=== PATIENT | male | born 1970 | race Caucasian/White ===

== ENCOUNTER 2021-08-07 06:41 | Emergency (ER) | payer BC, MEDICAID ==
[~2021-08-07] VITALS: Ht 180.3 cm; Wt 77.3 kg
[2021-08-07 07:48] LABS: BASOPHILS % (AUTO) 0.2 % (0.0-2.0); EOSINOPHILS % (AUTO) 0.8 % (1.0-6.0); HEMATOCRIT 45.5 % (41-53); HEMOGLOBIN 15.4 g/dL (13.5-17.5); LYMPHOCYTES # (AUTO) 1.7 K/uL (1.0-4.8); LYMPHOCYTES % (AUTO) 20.4 % (22.0-44.0); MEAN CORPUSCULAR HGB CONC 33.9 G/dL (31.0-37.0); MEAN CORPUSCULAR VOLUME 89 fL (80-100); MONOCYTES # (AUTO) 0.6 K/uL (0.1-1.0); MONOCYTES % (AUTO) 7.1 % (2.0-9.0); NEUTROPHILS # (AUTO) 5.9 K/uL (1.8-7.7); NEUTROPHILS % (AUTO) 71.5 % (40.0-70.0); PLATELET COUNT (AUTO) 297 K/uL (150-450); RED BLOOD CELL COUNT(AUTO) 5.14 MIL/uL (4.50-5.90); RED CELL DISTRIBUTION WIDTH 13.3 % (11.5-14.5)
[2021-08-07 08:06] LABS: LACTIC ACID 0.8 mmol/L (0.4-2.0)
[2021-08-07 08:24] LABS: ANION GAP 8 mmol/L (8-16); CALCIUM, TOTAL 9.3 mg/dL (8.8-10.5); CARBON DIOXIDE 29 mmol/L (22-29); CHLORIDE 102 mmol/L (98-107); CREATININE 1.24 mg/dL (0.60-1.30); GLOMERULAR FILTR. RATE CALC > 60 mL/min (>60); GLUCOSE,RANDOM 111 mg/dL (70-110); POTASSIUM 4.5 mmol/L (3.5-5.1); SODIUM SERUM 139 mmol/L (136-145); UREA NITROGEN, BLOOD 21 mg/dL (7-18)
[2021-08-07 08:45] LABS: AMMONIA < 10 umol/L (11-32)
[2021-08-07 08:47] LABS: ALANINE AMINOTRANSFERASE 79 U/L (12-78); ALBUMIN 4.3 g/dL (3.4-5.0); ALKALINE PHOSPHATASE 185 U/L (46-116); ASPARTATE AMINOTRANSFERASE 89 U/L (15-37); BILIRUBIN,TOTAL 0.6 mg/dL (0.1-1.0); CREATINE KINASE, TOTAL ONLY 2069 U/L (39-308)
[2021-08-07] MEDS ORDERED: ASPIRIN 81 MG CHEWABLE TABLET PO ONE (09:15)
[2021-08-07] MEDS ORDERED: SODIUM CHLORIDE 0.9% 1,000 ML IV ONE (09:15)
[2021-08-07] MEDS ORDERED: HYDR200T38 PO (09:32)
[2021-08-07] MEDS ORDERED: LEFL10TA19 PO (09:32)
[2021-08-07] MEDS ORDERED: ALPR-705 PO (09:32)
[2021-08-07] MEDS ORDERED: LOSA-381 PO (09:32)
[2021-08-07] MEDS ORDERED: VALA500T34 PO (09:32)
[2021-08-07] MEDS ORDERED: BICT1TAB PO (09:32)
[2021-08-07] MEDS ORDERED: TEST75GE10 TP (09:32)
[2021-08-07] MEDS ORDERED: VARD20TA PO (09:32)
[2021-08-07] MEDS ORDERED: DICL75TA5 PO (09:32)
[2021-08-07 10:02] LABS: APPEARANCE,URINE CLEAR (CLEAR); BILIRUBIN,URINE NEGATIVE (NEGATIVE); GLUCOSE, URINE (UA) NEGATIVE (NEGATIVE); KETONES,URINE 40-60 mg/dL (NEGATIVE); LEUKOCYTE ESTERASE ,URINE NEGATIVE (NEGATIVE); NITRATE,URINE NEGATIVE (NEGATIVE); OCCULT BLOOD,URINE NEGATIVE (NEGATIVE); PH,URINE 5.5 (5.0-8.0); PROTEIN,URINE 30-70 mg/dL (NEGATIVE); UROBILINOGEN,URINE <=1.0 mg/dL (<=1.0)
[2021-08-07 10:13] LABS: AMPHET/METH SCREEN,URINE POSITIVE (NEGATIVE); BARBITURATE SCREEN, URINE NEGATIVE (NEGATIVE); BENZODIAZEPINES SCREEN,URINE NEGATIVE (NEGATIVE); CANNABINOID SCREEN,URINE NEGATIVE (NEGATIVE); COCAINE SCREEN,URINE NEGATIVE (NEGATIVE); METHADONE SCREEN, URINE NEGATIVE (NEGATIVE); OPIATE SCREEN,URINE NEGATIVE (NEGATIVE)
[2021-08-07 10:14] LABS: PHENCYCLIDINE SCREEN,URINE NEGATIVE (NEGATIVE)
[2021-08-07 11:29] VITALS: BP 136/92
== END 2021-08-07 11:33 | disposition left against medical advice (07) ==
LOC: EMS 06:43
DX: M62.82 Rhabdomyolysis (principal); F15.10 Other stimulant abuse, uncomplicated; Z88.1 Allergy status to other antibiotic agents; Z88.2 Allergy status to sulfonamides; Z79.899 Other long term (current) drug therapy
CPT/HCPCS: 36415; 70450; 71045; 72125; 80053; 80307; 81003; 82140; 82550; 83605; 84484; 85025; 93005; 96360; 99291; J7030; 51702